=== PATIENT | female | born 1965 ===

== ENCOUNTER 2017-10-09 07:12 | Emergency (ER) | payer BC ==
[~2017-10-09] VITALS: Ht 170.2 cm; Wt 81.6 kg
[2017-10-09] MEDS ORDERED: BROMFED DM COU118 ML PO (08:08)
[2017-10-09] MEDS ORDERED: AMLODIPINE BESYL5 MG PO (08:22)
[2017-10-09] MEDS ORDERED: ASPIRIN EC81 MG PO (08:22)
[2017-10-09] MEDS ORDERED: HYDROCHLOROTHIA25 MG PO (08:22)
[2017-10-09] MEDS ORDERED: TRILEPTAL300 MG PO (08:22)
[2017-10-09] MEDS ORDERED: METFORMIN HCL500 MG PO (08:22)
[2017-10-09] MEDS ORDERED: ACEBUTOLOL HCL200 MG PO (08:22)
[2017-10-09 08:30] VITALS: BP 118/72
[2017-10-09] MEDS ORDERED: TAMIFLU75 MG PO (08:33)
[2017-10-09] MEDS ORDERED: ZOFRAN ODT4 MG SL (08:34)
== END 2017-10-09 08:50 | disposition home or self-care (01) ==
LOC: FSED 07:12
DX: R05 Cough (principal); J11.1 Influenza due to unidentified influenza virus with other respiratory manifestations; I10 Essential (primary) hypertension; E11.9 Type 2 diabetes mellitus without complications
CPT/HCPCS: 87400; 99282